=== PATIENT | male | born 1975 | race Caucasian/White ===

== ENCOUNTER → 2023-08-09 16:48 | Outpatient (REF) | payer OTHER, SELFPAY | LOC: HWRAD 16:48 | PROVIDERS: ATTENDING PHYSICIAN Family Medicine | DX: S70.02XA Contusion of left hip, initial encounter (principal) | CPT/HCPCS: 73502 ==

== ENCOUNTER → 2023-11-28 15:22 | Outpatient (REF) | payer OTHER, SELFPAY | LOC: HWRAD 15:22 | PROVIDERS: ATTENDING PHYSICIAN Nurse Practitioner Acute Care; FAMILY PHYSICIAN Family Medicine; REFERRING PHYSICIAN Neurological Surgery | DX: M48.061 Spinal stenosis, lumbar region without neurogenic claudication (principal) | CPT/HCPCS: 72131 ==